=== PATIENT | male | born 1980 | race American Indian/Alaskan Native ===

== ENCOUNTER 2018-06-11 22:42 | Emergency (ER) | payer SELFPAY ==
[2018-06-11 23:12] VITALS: BP 130/79
== END 2018-06-12 04:30 | disposition left against medical advice (07) ==
LOC: ED 22:42
DX: K08.89 Other specified disorders of teeth and supporting structures (principal); Z53.21 Procedure and treatment not carried out due to patient leaving prior to being seen by health care provider